=== PATIENT | female | born 1975 | race Caucasian/White ===

== ENCOUNTER 2016-11-27 22:17 | Emergency (ER) | payer OTHER ==
[~2016-11-27] VITALS: Ht 165.1 cm; Wt 100.5 kg
[~2016-11-27 22:17] MED LIST: IBUP-727 PO; LORA-441 PO
[2016-11-27 22:27] VITALS: Ht 165.1 cm; Wt 100.5 kg
[2016-11-27] MEDS ORDERED: KETOROLAC 30 MG INJ IV STA (22:58)
[2016-11-27] MEDS ORDERED: SOD CHLORIDE 0.9% 1,000 ML IV ONE (23:00)
[2016-11-27] MEDS ORDERED: METOCLOPRAMIDE 10 MG INJ IV ONE (23:00)
[2016-11-27] MEDS ORDERED: DIPHENHYDRAMINE 50 MG INJ IV ONE (23:00)
[2016-11-28] MEDS ORDERED: IBUP-1542 PO (00:18)
[2016-11-28 00:23] VITALS: BP 112/61; PULSE 73; RESP 20
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
== END 2016-11-28 00:24 | disposition home or self-care (01) ==
LOC: FTE 22:17
DX: R51 Headache (principal)
CPT/HCPCS: 96374; 96375; J1200; J1885; J2765; J7030; Z7502